=== PATIENT | female | born 1975 | race Asian ===

== ENCOUNTER 2017-05-10 06:40 | Day surgery (SDC) | payer OTHER ==
[~2017-05-10] VITALS: Ht 160 cm; Wt 72.6 kg
[2017-05-10] MEDS: fentaNYL CITRATE/PF 100 MCG/2 ML AMP ONE ×4 (07:55→08:02)
[2017-05-10] MEDS: MIDAZOLAM HCL 5 MG/5 ML VIAL ONE ×4 (07:55→08:02)
[2017-05-10] MEDS ORDERED: SIMETHICONE 40 MG/0.6 ML ML ONE (07:58)
[2017-05-10] MEDS ORDERED: fentaNYL CITRATE/PF 100 MCG/2 ML AMP ONE (08:18)
[2017-05-10] MEDS ORDERED: MIDAZOLAM HCL 5 MG/5 ML VIAL ONE (08:18)
[2017-05-10 08:51] VITALS: BP_SYST 123
== END 2017-05-10 09:40 | disposition home or self-care (01) ==
LOC: SDS 06:40 → SMU 06:57 → SDS 09:40
PROVIDERS: ATTEND Internal Medicine
DX: K62.5 Hemorrhage of anus and rectum (principal); K31.7 Polyp of stomach and duodenum; D50.8 Other iron deficiency anemias; K21.9 Gastro-esophageal reflux disease without esophagitis; K44.9 Diaphragmatic hernia without obstruction or gangrene
CPT/HCPCS: 36415; 43239; 45378; 87081; 88305; 88312; 88313; J2250; J3010; J7030

== ENCOUNTER 2017-05-13 09:07 | Outpatient (CLI) | payer OTHER | END 2017-05-13 19:24 | disposition home or self-care (01) | LOC: SUS 09:07 | DX: R10.2 Pelvic and perineal pain (principal) | CPT/HCPCS: 76856-TC ==

== ENCOUNTER 2017-07-23 13:14 | Outpatient (CLI) | payer OTHER | END 2017-07-23 21:48 | disposition home or self-care (01) | LOC: SMA 13:14 | PROVIDERS: ATTEND Obstetrics & Gynecology | DX: Z12.31 Encounter for screening mammogram for malignant neoplasm of breast (principal) | CPT/HCPCS: G0202 ==

== ENCOUNTER 2017-08-02 13:24 | Outpatient (CLI) | payer OTHER | END 2017-08-02 19:21 | disposition home or self-care (01) | LOC: SMA 13:24 | PROVIDERS: ATTEND Obstetrics & Gynecology | DX: N63.20 Unspecified lump in the left breast, unspecified quadrant (principal); R92.8 Other abnormal and inconclusive findings on diagnostic imaging of breast | CPT/HCPCS: 76642; G0206 ==

== ENCOUNTER 2017-10-11 15:03 | Outpatient (CLI) | payer OTHER | END 2017-10-11 21:23 | disposition home or self-care (01) | LOC: SCT 15:03 | DX: R19.00 Intra-abdominal and pelvic swelling, mass and lump, unspecified site (principal) | CPT/HCPCS: 72192-TC ==

== ENCOUNTER 2017-10-22 05:28 | Emergency (ER) | payer OTHER ==
[~2017-10-22] VITALS: Ht 157.5 cm; Wt 56.2 kg
[2017-10-22 05:30] VITALS: BP_SYST 142
--- NOTE | 2017-10-22 05:30 | NUR ---
Patient to ER bed 7 to gown for evaluation. Side rails up.
--- NOTE | 2017-10-22 05:40 | NUR ---
PT IN ROOM 7 WITH C/O LOWER ABDOMINAL PAIN SINCE 1729, WITH N/V/D . DR FORREST AWARE.
--- NOTE | 2017-10-22 06:05 | NUR ---
ER at bedside examining patient.
[2017-10-22 06:10] LABS: BILIRUBIN,URINE NEGATIVE (NEGATIVE); BLOOD, URINE 1+ (NEGATIVE); CLARITY/URINE CLEAR (CLEAR); COLOR,URINE YELLOW (YELLOW); GLUCOSE,URINE NEGATIVE (NEGATIVE); KETONES,URINE NEGATIVE (NEGATIVE); LEUKOCYTE ESTERASE ,URINE NEGATIVE (NEGATIVE); NITRITE, URINE NEGATIVE (NEGATIVE); PH,URINE 5.5 (5.0-8.0); PROTEIN URINE NEGATIVE (NEGATIVE); UROBILINOGEN,URINE 0.2 (0.2-1.0)
[2017-10-22 06:14] LABS: BACTERIA,URINE FEW /HPF (None Seen); RBC,URINE 0-3 /HPF (0-3); WBC,URINE 0-3 /HPF (0-3)
[2017-10-22] MEDS: KETOROLAC TROMETHAMINE 30 MG VIAL IVP ONE (06:33)
[2017-10-22] MEDS: ONDANSETRON HCL 4 MG/2 ML VIAL IVP ONE (06:34)
--- NOTE | 2017-10-22 07:40 | NUR ---
Pt was wheeled to CT in stable condition.
[2017-10-22 07:48] LABS: BASOPHILS # (AUTO) 0.2 K/uL (0.0-0.2); EOSINOPHILS # (AUTO) 0.1 K/uL (0.0-0.4); EOSINOPHILS % (AUTO) 0.5 % (0.0-4.0); HEMATOCRIT 38.3 % (36-48); HEMOGLOBIN 12.6 g/dL (12.0-16.0); LYMPHOCYTES % (AUTO) 6.3 % (20.5-51.5); MEAN CORPUSCULAR HEMOGLOBIN 30 pg (27-31); MEAN CORPUSCULAR HGB CONC 33 % (32-36); MEAN CORPUSCULAR VOLUME 91 fL (79.0-98.0); MONOCYTES # (AUTO) 0.7 K/uL (0.0-1.0); MONOCYTES % (AUTO) 4.4 % (1.7-9.3); NEUTROPHILS # (AUTO) 13.3 K/uL (1.8-7.7); NEUTROPHILS % (AUTO) 87.8 % (40.0-70.0); PLATELET COUNT (AUTO) 344 K/uL (130-430); RED CELL DISTRIBUTION WIDTH 13.4 % (9.0-15.0); WHITE BLOOD COUNT (AUTO) 15.3 K/uL (4.8-10.8)
--- NOTE | 2017-10-22 07:50 | NUR ---
Pt returned from CT in stable condition.
--- NOTE | 2017-10-22 07:56 | NUR ---
Pt complains of pain to abdomen. Notified Dr. Alarcon.
[2017-10-22 08:10] LABS: CALCIUM 9.7 mg/dL (8.4-11.0); CREATININE 0.79 mg/dL (0.55-1.30); POTASSIUM 4.1 mmol/L (3.5-5.1)
[2017-10-22 08:14] LABS: ALBUMIN 3.7 g/dL (3.4-4.8); TOTAL BILIRUBIN 0.2 mg/dL (0.0-1.0)
[2017-10-22] MEDS: MORPHINE 2 MG/ML INJ. SYRINGE IVP ONE (08:20)
--- NOTE | 2017-10-22 08:20 | NUR ---
Medication was given, pt tolerated well. No adverse reaction, will continue to monitor.
[2017-10-22 09:37] LABS: INR 1.1 (0.8-1.2); PROTHROMBIN TIME 9.3 SECS (9.5-12.5)
--- NOTE | 2017-10-22 10:44 | NUR ---
Dr. Ca at patient bedside examining patient.
[2017-10-22 11:24] VITALS: BP_SYST 138
--- NOTE | 2017-10-22 11:24 | NUR ---
Patient given written and verbal discharge instructions and verbalizes understanding. ER MD discussed with patient the results and treatment provided. Patient in stable condition. ID arm band removed. IV catheter removed intact and dressing applied, no active bleeding. Rx of Zofran and [place] given. Patient educated on pain management and to follow up with PMD. Pain Scale 0/10 . Opportunity for questions provided and answered.
== END 2017-10-22 11:24 | disposition home or self-care (01) ==
LOC: SED 05:28
DX: C76.3 Malignant neoplasm of pelvis (principal)
CPT/HCPCS: 36415; 74176; 76856; 80053; 81000; 81025; 83690; 85025; 85610; 85730; 86304; 96374; 96375; 99285; J1885; J2270; J2405

== ENCOUNTER 2018-01-01 11:20 | Outpatient (CLI) | payer OTHER ==
[2018-01-01 12:17] LABS: BILIRUBIN,URINE NEGATIVE (NEGATIVE); CLARITY/URINE CLEAR (CLEAR); COLOR,URINE YELLOW (YELLOW); GLUCOSE,URINE NEGATIVE (NEGATIVE); KETONES,URINE NEGATIVE (NEGATIVE); LEUKOCYTE ESTERASE ,URINE NEGATIVE (NEGATIVE); NITRITE, URINE NEGATIVE (NEGATIVE); PH,URINE 6.5 (5.0-8.0); PROTEIN URINE NEGATIVE (NEGATIVE); UROBILINOGEN,URINE 0.2 (0.2-1.0)
[2018-01-01 12:18] LABS: BASOPHILS # (AUTO) 0.1 K/uL (0.0-0.2); BASOPHILS % (AUTO) 1.1 % (0.0-2.0); EOSINOPHILS # (AUTO) 0.4 K/uL (0.0-0.4); EOSINOPHILS % (AUTO) 8.9 % (0.0-4.0); HEMATOCRIT 35.5 % (36-48); HEMOGLOBIN 12.1 g/dL (12.0-16.0); LYMPHOCYTES # (AUTO) 1.4 K/uL (1.0-5.5); LYMPHOCYTES % (AUTO) 27.6 % (20.5-51.5); MEAN CORPUSCULAR HEMOGLOBIN 31 pg (27-31); MEAN CORPUSCULAR HGB CONC 34 % (32-36); MEAN CORPUSCULAR VOLUME 90 fL (79.0-98.0); MONOCYTES # (AUTO) 0.4 K/uL (0.0-1.0); MONOCYTES % (AUTO) 8.6 % (1.7-9.3); NEUTROPHILS # (AUTO) 2.7 K/uL (1.8-7.7); NEUTROPHILS % (AUTO) 53.8 % (40.0-70.0); PLATELET COUNT (AUTO) 391 K/uL (130-430); RED BLOOD CELL COUNT(AUTO) 3.94 MIL/uL (4.2-6.2); RED CELL DISTRIBUTION WIDTH 13.7 % (9.0-15.0)
[2018-01-01 12:19] LABS: BLOOD, URINE TRACE (NEGATIVE)
[2018-01-01 12:29] LABS: ANION GAP 7 (5-15); CALCIUM 9.9 mg/dL (8.4-11.0); CHLORIDE 101 mmol/L (98-107); GLUCOSE 103 mg/dL (70-99); POTASSIUM 4.6 mmol/L (3.5-5.1); SODIUM SERUM 138 mmol/L (136-145); UREA NITROGEN, BLOOD 12 mg/dL (8-21)
[2018-01-01 12:33] LABS: GFR AFRICAN AMERICAN 118 mL/min (>90)
[2018-01-01 12:44] LABS: ALANINE AMINOTRANSFERASE 58 U/L (12-78); ALBUMIN 3.9 g/dL (3.4-4.8); ASPARTATE AMINOTRANSFERASE 29 U/L (10-37); FREE T4 (FREE THYROXINE) 1.1 ng/dl (0.8-1.5); THYROID STIMULATING HORMONE 2.45 uIu/mL (0.36-3.74); TOTAL BILIRUBIN 0.3 mg/dL (0.0-1.0)
[2018-01-01 12:50] LABS: BACTERIA,URINE FEW /HPF (None Seen); WBC,URINE 0-3 /HPF (0-3)
[2018-01-01 13:20] LABS: CHOLESTEROL 232 mg/dL (<200); HDL CHOLESTEROL 63 mg/dL (>55); LDL CHOLESTEROL 147 mg/dL (<100); TRIGLYCERIDES 93 mg/dL (30-150)
== END 2018-01-01 21:54 | disposition home or self-care (01) ==
LOC: SLB 11:20
DX: R42 Dizziness and giddiness (principal); R10.2 Pelvic and perineal pain; K21.9 Gastro-esophageal reflux disease without esophagitis; E03.9 Hypothyroidism, unspecified
CPT/HCPCS: 36415; 80053; 80061; 81000-TC; 82550-TC; 84439; 84443-TC; 84484; 85025

== ENCOUNTER 2018-09-01 13:40 | Outpatient (CLI) | payer OTHER | END 2018-09-01 19:49 | disposition home or self-care (01) | LOC: SMA 13:40 | DX: Z12.31 Encounter for screening mammogram for malignant neoplasm of breast (principal) | CPT/HCPCS: 77067 ==

== ENCOUNTER 2018-09-03 09:36 | Outpatient (CLI) | payer OTHER | END 2018-09-03 20:00 | disposition home or self-care (01) | LOC: SUS 09:36 | DX: R92.2 Inconclusive mammogram (principal); R92.8 Other abnormal and inconclusive findings on diagnostic imaging of breast | CPT/HCPCS: 76642; 77065 ==

== ENCOUNTER 2019-05-14 13:25 | Outpatient (CLI) | payer OTHER | END 2019-05-14 21:07 | disposition home or self-care (01) | LOC: SUS 13:25 | DX: N32.89 Other specified disorders of bladder (principal); R10.2 Pelvic and perineal pain; Z90.710 Acquired absence of both cervix and uterus | CPT/HCPCS: 76856-TC ==